=== PATIENT | male | born 2000 | race Caucasian/White ===

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

== ENCOUNTER 2019-05-18 05:22 | Emergency (ER) | payer SELFPAY ==
[2019-05-18 06:17] VITALS: BP 138/82; Ht 180.3 cm
== END 2019-05-18 06:43 | disposition left against medical advice (07) ==
LOC: ED 05:22
DX: R19.7 Diarrhea, unspecified (principal)